=== PATIENT | male | born 2005 | race Caucasian/White ===

== ENCOUNTER 2024-06-08 22:13 | Emergency (ER) | payer OTHER ==
[~2024-06-08] VITALS: Ht 172.7 cm; Wt 82.0 kg
[2024-06-08] MEDS: IBUPROFEN 600MG TAB PO ONE (23:35)
[2024-06-09] VITALS: BP 126/68; TEMP 97.1; O2SAT 98
== END 2024-06-09 00:10 | disposition home or self-care (01) ==
LOC: M ED 22:13
DX: R07.81 Pleurodynia (principal); B34.2 Coronavirus infection, unspecified